=== PATIENT | female | born 1980 | race American Indian/Alaskan Native ===

== ENCOUNTER 2017-03-28 09:32 | Emergency (ER) | payer OTHER ==
[2017-03-28] MEDS ORDERED: NACL 0.9% 1000 ML 1,000 ML IV ONE (10:17)
[2017-03-28 11:07] LABS: Basophils % (Auto) 0.7 % (0.0-1.8); Eosinophils % (Auto) 0.7 % (0.0-4.3); Hematocrit 37.1 % (30.3-42.9); Hemoglobin 12.2 gm/dl (10.1-14.3); Mean Corpuscular HGB Conc 33 % (30-34); Mean Corpuscular Hemoglobin 32 pg (28-32); Mean Corpuscular Volume 98 fl (79-97); Platelet Count 240 K/mm3 (140-440); Red Blood Count 3.79 M/mm3 (3.65-5.03); Red Cell Distribution Width 12.6 % (13.2-15.2); White Blood Count 13.3 K/mm3 (4.5-11.0)
[2017-03-28 11:13] LABS: Anion Gap 15 mmol/L; BUN/Creatinine Ratio 20; Blood Urea Nitrogen 8 mg/dL (7-17); Calcium 9.4 mg/dL (8.4-10.2); Carbon Dioxide 22 mmol/L (22-30); Chloride 101.9 mmol/L (98-107); Glucose 79 mg/dL (65-100); Potassium 3.8 mmol/L (3.6-5.0); Sodium 135 mmol/L (137-145)
[2017-03-28 11:19] LABS: INR 0.92 (0.87-1.13)
--- NOTE | 2017-03-28 11:47 | Emergency Department Report ---
ED Female HPI - General Chief complaint: Vaginal Bleeding Stated complaint: POSS MISCARRIAGE Time Seen by Provider: 03/28/17 11:43 Source: patient, EMS Mode of arrival: Stretcher Limitations: No Limitations - History of Present Illness Initial comments: Patient is 3 para 0, presented today with vaginal bleeding started this morning with lower abdominal cramping. Patient is 15 weeks following his doctor Fredy. Patient stated that her bleeding is better after she came to the ER. Patient denied any nausea vomiting no urinary frequency. MD Complaint: vaginal bleeding -: This morning Location: suprapubic Radiation: non-radiating Severity: moderate Severity scale (0 -10): 6 Quality: cramping Are you Now?: Yes (15 weeks ) - Related Data Allergies Allergy/AdvReac Type Severity Reaction Status Date / Time No Known Allergies Allergy Verified 03/28/17 11:43 ED Review of Systems ROS: Stated complaint: POSS MISCARRIAGE Other details as noted in HPI Comment: All other systems reviewed and negative Constitutional: denies: chills, fever Respiratory: denies: cough, shortness of breath Cardiovascular: denies: chest pain, palpitations Gastrointestinal: abdominal pain. denies: nausea, vomiting, hematemesis, hematochezia Genitourinary: denies: dysuria, frequency Neurological: denies: headache, weakness, numbness, paresthesias ED Past Medical Hx - Past Medical History Hx Hypertension: Yes - Surgical History Past Surgical History?: No - Social History Smoking Status: Never Smoker Substance Use Type: None ED Physical Exam - General Limitations: No Limitations General appearance: alert, in no apparent distress - Head Head exam: Present: atraumatic - Eye Eye exam: Present: normal appearance - ENT ENT exam: Present: normal exam, mucous membranes moist - Respiratory Respiratory exam: Present: normal lung sounds bilaterally. Absent: wheezes, rales, rhonchi - Cardiovascular Cardiovascular Exam: Present: regular rate, normal rhythm, normal heart sounds - GI/Abdominal GI/Abdominal exam: Present: soft, normal bowel sounds. Absent: distended, tenderness, guarding, rebound, rigid, mass, bruit, pulsatile mass - Extremities Exam Extremities exam: Present: normal inspection, full ROM, normal capillary refill - Back Exam Back exam: Present: normal inspection. Absent: tenderness, CVA tenderness (R), CVA tenderness (L) - Neurological Exam Neurological exam: Present: alert, oriented X3, CN II-XII intact, normal gait - Skin Skin exam: Present: warm, intact, normal color. Absent: dry ED Course Vital Signs 03/28/17 03/28/17 03/28/17 09:59 10:25 10:30 Temperature 98.8 F Pulse Rate 89 84 Respiratory 18 24 Rate Blood Pressure 123/88 126/79 O2 Sat by Pulse 99 98 98 Oximetry 03/28/17 03/28/17 03/28/17 10:46 11:00 11:16 Temperature Pulse Rate 82 76 77 Respiratory 14 17 18 Rate Blood Pressure 126/79 126/81 126/81 O2 Sat by Pulse 100 100 99 Oximetry 03/28/17 11:30 Temperature Pulse Rate 79 Respiratory 14 Rate Blood Pressure 120/71 O2 Sat by Pulse 98 Oximetry ED Medical Decision Making - Lab Data Result diagrams: 03/28/17 10:35 03/28/17 10:35 - Radiology Data Radiology results: report reviewed Ultrasound pelvic 6/ showed a 16 weeks and 5 days single, viable intrauterine was not complication. Critical care attestation.: If time is entered above; I have spent that time in minutes in the direct care of this critically ill patient, excluding procedure time. ED Disposition Clinical Impression: Abdominal pain affecting , Vaginal bleeding during , antepartum Disposition: -01 TO HOME OR SELFCARE Is pt being admited?: No Condition: Stable Instructions: Abdominal Pain in (ED) Additional Instructions: Follow-up his doctor Fredy in the next 2 days, please return to the ER if symptoms is not improving. Referrals: PRIMARY CARE, [Primary Care Provider] - 3-5 Days
--- NOTE | 2017-03-28 12:11 | Ultrasound Report ---
History: Vaginal bleeding. Findings: Gestation: Single Position: Cephalic Amniotic Fluid: Normal RUSTY = cm Placenta: Posterior Placental Grade: 0 heart rate 160 per minute. Cervix with funneling 3.7 cm at the internal os. It is too early for anatomic survey BPD: 3.4 cm = 16 w 3 d HC: 13.2 cm = 16 w 5 d AC: 10.2 cm = 16 w 1 d FL: 2.5 cm = 17 w 3 d HC/AC Ratio: 1.3 Cephalic Index: 87 Estimated Weight: 168 grams LMP: 01/26/17 Clinical age = 8 w 5 d EDC: 6 last US Gest. Age = 16 w 5 d EDC: 09/07/17 oh
[2017-03-28 13:33] VITALS: BP 131/82
== END 2017-03-28 13:39 | disposition home or self-care (01) ==
LOC: ED 09:32
DX: O46.92 Antepartum hemorrhage, unspecified, second trimester (principal); O26.892 Other specified pregnancy related conditions, second trimester; I10 Essential (primary) hypertension; Z3A.16 16 weeks gestation of pregnancy
CPT/HCPCS: 36415; 76805; 80048; 84702; 85025; 85610; 86850; 86900; 86901; 96361; 99284; J7030